=== PATIENT | female | born 1970 | race Caucasian/White ===

== ENCOUNTER 2020-12-25 08:49 | Emergency (ER) | payer OTHER ==
[~2020-12-25] VITALS: Ht 165.1 cm; Wt 77.1 kg
[~2020-12-25 08:49] MED LIST: HYDROCODON-ACE1 EAC5 PO; NAPROSYN500 M1 PO; TRAZODONE HCL100 MG PO; WELLBUTRIN SR150 MG PO; ZANAFLEX4 MG PO
[2020-12-25] MEDS ORDERED: FAMOTIDINE 10 M10 MG PO (09:18)
[2020-12-25] MEDS ORDERED: CLOBETASOL PROP50 M1 TOP (09:18)
[2020-12-25 11:17] LABS: HEMATOCRIT 41.3 % (37.0-47.0); HEMOGLOBIN 14.4 gm/dL (12.0-15.0); MCH 31.6 pg (26.0-34.0); MCV 90.4 fL (80.0-100.0); MPV 7.1 fl. (7.2-11.1); NUCLEATED RBCS 0 /100WBC; PLATELET COUNT* 224 thou/uL (150-400); RBC 4.57 mil/uL (4.20-5.00); RDW-CV 12.9 % (10.5-14.5); WBC 8.8 thou/uL (4.0-11.0)
[2020-12-25 11:22] LABS: URINE BILIRUBIN NEGATIVE (Negative); URINE BLOOD TRACE (Negative); URINE CLARITY CLEAR; URINE COLOR YELLOW; URINE GLUCOSE-RANDOM NEGATIVE (Negative); URINE KETONES 2+ (Negative); URINE LEUKOCYTES-REFLEX 1+ (Negative); URINE NITRITE-REFLEX NEGATIVE (Negative); URINE PROTEIN NEGATIVE (Negative); URINE SPECIFIC GRAVITY 1.025 (1.005-1.030); URINE UROBILINOGEN 0.2 E.U./dl (0.2-1.0)
[2020-12-25 11:27] LABS: SQUAMOUS >10 Many /LPF (0-3)
[2020-12-25 11:28] LABS: BACTERIA-REFLEX >30 Many /HPF (None Seen); CASTS None Seen /LPF (None Seen); CRYSTALS None Seen /LPF (None Seen); MUCUS >6 Heavy strn/LPF (None Seen); URINE RBC None Seen /HPF (0-2); URINE WBC-REFLEX 6-15 Few /HPF (0-5)
[2020-12-25 11:28] LABS: CALCIUM 8.7 mg/dL (8.5-10.1); CREATININE 0.8 mg/dL (0.6-1.3); POTASSIUM 3.7 mmol/L (3.5-5.1)
[2020-12-25 11:31] LABS: ALBUMIN 4.1 g/dL (3.4-5.0); TOTAL BILIRUBIN 0.6 mg/dL (<0.1-1.0); TOTAL PROTEIN 7.4 g/dL (6.4-8.2)
[2020-12-25 11:47] LABS: ABSOLUTE LYMPHOCYTES 0.8 thou/uL (0.8-5.3); ABSOLUTE MONOCYTES 0.1 thou/uL (0.0-1.2); ABSOLUTE NEUTROPHILS 7.9 thou/uL (1.6-8.1); PLATELET ESTIMATE ADEQUATE
[2020-12-25] MEDS ORDERED: CEPHALEXIN500 MG PO (12:16)
[2020-12-25] MEDS ORDERED: FLEXERIL PO (12:16)
[2020-12-25] MEDS ORDERED: ZOFRAN ODT4 MG DISSOLVE (12:16)
[2020-12-25 12:21] VITALS: BP 98/51
--- NOTE | 2020-12-25 13:43 | EKG ---
[place] [address] ELECTROCARDIOGRAM REPORT Name: ANNABELLA ANDREW Room: [facility]#: [id number] Admission: 12/25/20 Attend Phys: Discharge: 12/25/20 Date of : 74 Date of Service: 12/25/20 1054 Report #: [id number] THIS REPORT FOR: //name// [facility] ED Test Date: 2020-12-25 Test Time: 10:54:05 Pat Name: ANNABELLA ANDREW Department: Room: Gender: Rail Operator: : 1970 Requested By: Yimi Michele Order Number: [id number] MD: Lamberto Degroot Measurements Intervals [place] Rate: 93 P: 55 CT: 140 QRS: 37 QRSD: 89 T: 32 QT: 353 QTc: 440 Interpretive Statements Sinus rhythm Borderline T abnormalities, anterior leads Baseline wander in lead(s) V5,V6 No previous ECG available for comparison Electronically Signed On 12-25-2020 13:43:16 CDT by Lamberto Degroot [email or web address] <ELECTRONICALLY SIGNED> By: Lamberto Degroot MD, [facility] 12/25/20 1343 1054 1054 Lamberto Degroot MD, [facility] /EPI
== END 2020-12-25 12:22 | disposition home or self-care (01) ==
LOC: M.ERS 08:49
PROVIDERS: Emergency Medicine Emergency Medical Services
DX: N39.0 Urinary tract infection, site not specified (principal); Z20.822 Contact with and (suspected) exposure to COVID-19; R11.2 Nausea with vomiting, unspecified; Z88.8 Allergy status to other drugs, medicaments and biological substances; Z90.89 Acquired absence of other organs; Z90.710 Acquired absence of both cervix and uterus